=== PATIENT | male | born 1965 | race Caucasian/White ===

== ENCOUNTER 2018-07-25 11:58 | Inpatient (IN) ==
[2018-07-25 13:13] LABS: Basophils % 0.6 % (0.0-0.8); Eosinophils # 0.1 10*3/uL (0.0-0.87); Eosinophils % 1.7 % (0.00-10.9); Hematocrit 41.3 VOL% (42.0-52.0); Hemoglobin 13.1 GM/DL (14.0-18.0); Immature Granulocytes % 0.3 %; Immature Granulocytes Absolute 0.02 #; Lymphocytes # 1.5 10*3/uL (1.4-4.0); Lymphocytes % 22.1 % (21.2-54.2); Mean Corpuscular HGB Conc 31.7 GM/DL (32-36); Mean Corpuscular Hemoglobin 29 PG (27-34); Mean Corpuscular Volume 89.8 FL (87-102); Mean Platelet Volume 11.8 FL (9.6-12.0); Monocytes # 0.4 10*3/uL (0.11-0.8); Monocytes % 5.9 % (1.7-12.7); Neutrophils # 4.9 10*3/uL (1.4-7.4); Neutrophils % 69.4 % (38.7-73.9); Platelet Count 193 T/CUMM (130-400)
[2018-07-25 13:32] LABS: Albumin 3.6 G/DL (3.4-5.0); Bilirubin,Total 0.9 MG/DL (0.2-1.0); Potassium 4.2 MMOL/L (3.5-5.1); Total Protein 6.7 G/DL (6.4-8.3)
[2018-07-25] MEDS ORDERED: FUROSEMIDE 40 MG/4 ML VIAL IV STA (13:59)
[2018-07-25] MEDS ORDERED: BISACODYL 5 MG TABLET PO PRN (14:37)
[2018-07-25] MEDS ORDERED: ONDANSETRON 4 MG/2 ML VIAL IV PRN (14:37)
[2018-07-25] MEDS ORDERED: ZALEPLON 5 MG CAPSULE PO PRN (14:37)
[2018-07-25] MEDS ORDERED: ALPRAZolam 0.5 MG TABLET PO PRN (14:42)
[2018-07-25] MEDS: dilTIAZem Drip 125 MG/125 ML PREMIX IV SCH (16:56)
[2018-07-25] MEDS: ASPIRIN EC 81 MG TABLET PO SCH (20:52)
[2018-07-25] MEDS: ROSUVASTATIN 10 MG TABLET PO SCH (20:52)
[2018-07-25] MEDS ORDERED: CARVEDILOL 12.5 MG TABLET PO SCH (21:00)
[2018-07-25] MEDS: APIXABAN 5 MG TABLET PO SCH (21:55)
[2018-07-26] MEDS: dilTIAZem Drip 125 MG/125 ML PREMIX IV SCH ×2 (03:40→20:25)
[2018-07-26] MEDS: PANTOPRAZOLE 40 MG TABLET PO SCH (08:50)
[2018-07-26] MEDS: buPROPion XL 150 MG TABLET PO SCH (08:50)
[2018-07-26] MEDS: DILTIAZEM CD 120 MG CAPSULE PO SCH ×2 (08:50→20:26)
[2018-07-26] MEDS: LISINOPRIL 20 MG TABLET PO SCH (08:50)
[2018-07-26] MEDS: APIXABAN 5 MG TABLET PO SCH ×2 (08:50→20:27)
[2018-07-26] MEDS: CARVEDILOL 25 MG TABLET PO SCH ×2 (08:51→20:27)
[2018-07-26] MEDS: ASPIRIN EC 81 MG TABLET PO SCH (20:26)
[2018-07-26] MEDS: ROSUVASTATIN 10 MG TABLET PO SCH (20:27)
[2018-07-27] MEDS: buPROPion XL 150 MG TABLET PO SCH (08:59)
[2018-07-27] MEDS: LISINOPRIL 20 MG TABLET PO SCH (08:59)
[2018-07-27] MEDS: PANTOPRAZOLE 40 MG TABLET PO SCH (08:59)
[2018-07-27] MEDS: APIXABAN 5 MG TABLET PO SCH ×2 (08:59→21:16)
[2018-07-27] MEDS ORDERED: LISINOPRIL 20 MG TABLET PO SCH (09:46)
[2018-07-27] MEDS: SOTALOL 80 MG TABLET PO SCH ×2 (10:02→21:15)
[2018-07-27] MEDS ORDERED: PROPOFOL 200 MG/20 ML VIAL IV ONE (10:09)
[2018-07-27] MEDS ORDERED: ETOMIDATE 40 MG/20 ML VIAL IV ONE (10:10)
[2018-07-27] MEDS: FUROSEMIDE 20 MG TABLET PO SCH (10:47)
[2018-07-27] MEDS: LISINOPRIL 10 MG TABLET PO SCH (10:48)
[2018-07-27] MEDS ORDERED: HYDROCORTISONE 1% CREAM 28 GM TUBE TOP PRN (20:41)
[2018-07-27] MEDS: ASPIRIN EC 81 MG TABLET PO SCH (21:15)
[2018-07-27] MEDS: ROSUVASTATIN 10 MG TABLET PO SCH (21:16)
[2018-07-28 04:44] LABS: Basophils % 0.4 % (0.0-0.8); Eosinophils # 0.2 10*3/uL (0.0-0.87); Eosinophils % 1.7 % (0.00-10.9); Hematocrit 38.8 VOL% (42.0-52.0); Hemoglobin 12.2 GM/DL (14.0-18.0); Immature Granulocytes % 0.2 %; Immature Granulocytes Absolute 0.02 #; Lymphocytes % 22.7 % (21.2-54.2); Mean Corpuscular HGB Conc 31.4 GM/DL (32-36); Mean Corpuscular Hemoglobin 28 PG (27-34); Mean Corpuscular Volume 90.2 FL (87-102); Mean Platelet Volume 11.7 FL (9.6-12.0); Monocytes # 0.5 10*3/uL (0.11-0.8); Monocytes % 5.7 % (1.7-12.7); Neutrophils # 6.2 10*3/uL (1.4-7.4); Neutrophils % 69.3 % (38.7-73.9); Platelet Count 207 T/CUMM (130-400); Red Cell Distribution Width 14.1 % (9.3-17.3); White Blood Count 8.9 T/CUMM (4-12)
[2018-07-28 05:12] LABS: Calcium 8.8 MG/DL (8.5-10.1); Osmolality,Calculated 281.4 MOS/KG (273-304); Potassium 3.8 MMOL/L (3.5-5.1)
[2018-07-28] MEDS: LISINOPRIL 10 MG TABLET PO SCH (09:13)
[2018-07-28] MEDS: SOTALOL 80 MG TABLET PO SCH (09:13)
[2018-07-28] MEDS: buPROPion XL 150 MG TABLET PO SCH (09:13)
[2018-07-28] MEDS: PANTOPRAZOLE 40 MG TABLET PO SCH (09:13)
[2018-07-28] MEDS: APIXABAN 5 MG TABLET PO SCH (09:13)
[2018-07-28] MEDS: FUROSEMIDE 20 MG TABLET PO SCH (09:13)
[2018-07-28 12:27] VITALS: BP 118/75
== END 2018-07-28 14:27 | disposition home or self-care (01) | DRG 308 ==
LOC: N.ED 11:58 → N.EDINP 14:37 → SUATTDRO 14:37 → N.TELES 15:08
PROVIDERS: ADMIT Internal Medicine Cardiovascular Disease; ATTEND Internal Medicine